=== PATIENT | female | born 1960 | race Caucasian/White ===

== ENCOUNTER 2017-09-14 08:20 | Emergency (ER) | payer OTHER ==
[~2017-09-14] VITALS: Ht 154.9 cm; Wt 90.7 kg
--- NOTE | 2017-09-14 08:25 | NUR ---
PATIENT TO 4 AT THIS TIME.
[2017-09-14 08:28] VITALS: BP 135/74
[2017-09-14] MEDS ORDERED: ATOR10TA51 PO (08:34)
[2017-09-14] MEDS ORDERED: FLUO-387 PO (08:34)
[2017-09-14] MEDS ORDERED: TRAZ-286 PO (08:34)
[2017-09-14] MEDS ORDERED: BUPR300T3 PO (08:34)
--- NOTE | 2017-09-14 08:38 | NUR ---
PT BIBA FOR EVALUATION OF GENERALIZED WEAKNESS SINCE THIS AM AFTER TAKING DEPRESSION MEDS. HX OF DEPRESSION, HYPERLIPIDEMIA.DENIES N/V/D; SKIN IS PINK/WARM/DRY; AAOX4; LUNGS CLEAR BL; HR EVEN AND REGULAR; PT DENIES ANY FEVER, CP, SOB, OR COUGH AT THIS TIME; PATIENT STATES PAIN OF 0/10 AT THIS TIME; PATIENT POSITIONED FOR COMFORT; HOB ELEVATED; BEDRAILS UP X2; BED DOWN.ALL MONITORS IN PLACED; ER MD MADE AWARE OF PT STATUS.
--- NOTE | 2017-09-14 09:29 | NUR ---
PT SLEEPING;NO ACUTE DISTRESS NOTED;WILL CONTINUE MONITOR PT.
--- NOTE | 2017-09-14 09:36 | NUR ---
DR DURBIN AT BEDSIDE.
[2017-09-14] MEDS ORDERED: LORazepam 1 MG TAB PO ONE (10:10)
--- NOTE | 2017-09-14 11:34 | NUR ---
PT SLEEPING;NO ACUTE DISTRESS NOTED AT THIS TIME;
--- NOTE | 2017-09-14 12:38 | NUR ---
PT WAITING FOR HER SISTER TO PICK HER UP;DR SPANN SAYS OKAY TO STAY FOR A WHILE;PT REFUSE BUS PASS;CHARGE NURSE AWARE OF THE SITUATION;
--- NOTE | 2017-09-14 13:50 | NUR ---
Patient discharged with v/s stable. Written and verbal after care instructions given and explained. Patient alert, oriented and verbalized understanding of instructions. Ambulatory with steady gait. All questions addressed prior to discharge. ID band removed. Patient advised to follow up with PMD. Rx of ATARAX AND PREDNISONE given. Patient educated on indication of medication including possible reaction and side effects. Opportunity to ask questions provided and answered.
[2017-09-14 13:51] VITALS: BP 127/82
== END 2017-09-14 13:50 | disposition home or self-care (01) ==
LOC: MED 08:20
DX: R53.1 Weakness (principal); J02.9 Acute pharyngitis, unspecified; F41.9 Anxiety disorder, unspecified; F32.9 Major depressive disorder, single episode, unspecified; E78.5 Hyperlipidemia, unspecified; Z79.899 Other long term (current) drug therapy; F17.210 Nicotine dependence, cigarettes, uncomplicated
CPT/HCPCS: 81002; 81025; 82948; 99283; C1758

== ENCOUNTER 2018-08-07 14:07 | Inpatient (IN) | payer OTHER ==
[~2018-08-07] VITALS: Ht 154.9 cm; Wt 68.0 kg
[~2018-08-07 14:07] MED LIST: ATOR10TA51 PO; BUPR300T3 PO; FLUO-387 PO; TRAZ-343 PO
[2018-08-07 14:13] VITALS: BP 139/77
--- NOTE | 2018-08-07 14:15 | NUR ---
58YO TO ER FOR MID STERNAL CP, AND NOT TAKING PSYCH MEDS FOR 3 DAYS. PT REPROTS PAIN X1WK INTERMITTENT GOING UP TO A 5/10 CURRENTLY 2/10 PAIN. VSS, PT DENIES ANY N/V/D, LS CLEAR THROUGHOUT, ABD SOFT, NON TENDER, CP NON RADIATING. WILL CONTINUE TO MONITOR
[2018-08-07] MEDS ORDERED: LORazepam 1 MG TAB PO ONE (14:50)
[2018-08-07] MEDS ORDERED: NACL 0.9% 1,000 ML IV ONE (14:50)
--- NOTE | 2018-08-07 15:00 | NUR ---
XRAY AT BEDSIDE
--- NOTE | 2018-08-07 15:30 | NUR ---
PT APPEARS TO BE SLEEPING IN NO APPEARENT DISTRESS
--- NOTE | 2018-08-07 15:48 | NUR ---
PT STATES SI THOUGHTS, [place] TO EVALUATE PT.
[2018-08-07 16:01] LABS: BASOPHILS % (AUTO) 0.4 % (0.0-2.0); EOSINOPHILS % (AUTO) 0.4 % (0.0-4.0); HEMATOCRIT 40.4 % (36-48); HEMOGLOBIN 13.6 g/dL (12.0-16.0); LYMPHOCYTES # (AUTO) 1.4 K/uL (2.5-16.5); LYMPHOCYTES % (AUTO) 14.2 % (20.5-51.1); MEAN CORPUSCULAR HEMOGLOBIN 30 pg (27-31); MEAN CORPUSCULAR HGB CONC 34 g/dL (33-37); MEAN CORPUSCULAR VOLUME 89.5 fL (80-94); MONOCYTES # (AUTO) 0.7 K/uL (0.8-1.0); MONOCYTES % (AUTO) 7.2 % (1.7-9.3); NEUTROPHILS # (AUTO) 7.5 K/uL (1.8-7.7); NEUTROPHILS % (AUTO) 77.8 % (42.2-75.2); PLATELET COUNT (AUTO) 453 K/uL (140-450); RED BLOOD CELL COUNT(AUTO) 4.51 MIL/uL (4.20-5.40); RED CELL DISTRIBUTION WIDTH 13.6 % (11.6-13.7); WHITE BLOOD COUNT (AUTO) 9.7 K/uL (4.8-10.8)
--- NOTE | 2018-08-07 16:09 | NUR ---
pt provided with crackers and juice, and additional blanket
--- NOTE | 2018-08-07 16:11 | NUR ---
food tray ordered,
[2018-08-07 16:15] LABS: ANION GAP 6.3 (8-16); CARBON DIOXIDE 28.2 mmol/L (21-32); CREATININE 0.8 mg/dL (0.6-1.3); POTASSIUM 3.5 mmol/L (3.5-5.1)
[2018-08-07 16:19] LABS: PROTHROMBIN TIME 9.8 secs (10.8-13.4)
[2018-08-07 16:23] LABS: ALBUMIN 3.3 g/dL (3.4-5.0); TOTAL BILIRUBIN 0.1 mg/dL (0.0-1.0)
[2018-08-07 16:25] LABS: ACETAMINOPHEN < 0.5 ug/ml (10-30)
--- NOTE | 2018-08-07 17:30 | NUR ---
FOOD TRAY PROVIDED TO PT, CONTINUOUS MONITORING IN PLACE
--- NOTE | 2018-08-07 17:42 | NUR ---
PT AMBULATED TO RESTROOM WITH STEADY GAIT
[2018-08-07 18:07] LABS: APPEARANCE,URINE HAZY (CLEAR); BILIRUBIN,URINE 1+ (NEGATIVE); BLOOD, URINE TRACE-I (NEGATIVE); COLOR,URINE YELLOW (YELLOW); LEUKOCYTE ESTERASE ,URINE NEGATIVE (NEGATIVE); NITRITE, URINE NEGATIVE (NEGATIVE); UGLUCOSE NEGATIVE (NEGATIVE)
[2018-08-07 18:12] LABS: BARBITURATE, URINE NEG. ng/ml (NEG <=200); BENZODIAZEPINE, URINE NEG. ng/mL (NEG <=200); CANNABINOID, URINE NEG. ng/mL (NEG <=50); COCAINE, URINE NEG. ng/mL (NEG <=300); OPIATE, URINE NEG. ng/mL (NEG <=2000); PHENCYCLIDINE SCREEN,URINE NEG. ng/mL (NEG <=25)
[2018-08-07 18:20] LABS: RBC,URINE 0-5 (RARE) /HPF (0-5); WBC,URINE 0-5 (RARE) /HPF (0-5)
[2018-08-07 18:21] LABS: CALCIUM OXALATE CRYSTALS,UR 0-5 /HPF (None Seen)
[2018-08-07] MEDS ORDERED: ONDANSETRON 4 MG/2 ML VIAL IVP PRN (18:25)
[2018-08-07] MEDS ORDERED: ACETAMINOPHEN 325 MG TAB PO PRN (18:25)
--- NOTE | 2018-08-07 18:46 | NUR ---
PT APPEARS TO BE SLEEPING IN NO APPEARENT DISTRESS
--- NOTE | 2018-08-07 19:00 | NUR ---
Patient will be admitted to care of DR LARA. Admited to TELE . Will go to room 109B. Belongings list completed. Report to [facility] .
[2018-08-07 19:02] LABS: FREE T4 (FREE THYROXINE) 0.94 ng/dL (0.76-1.46); MAGNESIUM 2.1 mg/dL (1.8-2.4); PHOSPHORUS 3.2 mg/dL (2.5-4.9); THYROID STIMULATING HORMONE 0.79 uIU/mL (0.34-3.74)
--- NOTE | 2018-08-07 19:15 | NUR ---
ADMITTED THIS 58 YEAR OLD FEMALE FROM ER WITH CC OF CHEST PAIN AND SUICIDAL IDEATION, AMBULATED TO BED WITH STEADY GAIT, ASSESSMENT DONE, VITAL SIGNS STABLE, PT AAOX4, CALM AND COOPERATIVE, DENIES HALLUCINATION, STATED "SUICIDAL IDEATION EARLIER BUT NOT ANYMORE", PT ON 5150 WITH SITTER, PLAN OF CARE DISCUSS, PT WITH NO DENTURES BUT STATED NO PROBLEM CHEWING FOOD, WILL PROVIDE WITH SANDWICH AND JUICE, ALL NEEDS ATTENDED.
[2018-08-07 19:30] VITALS: BP 102/60
--- NOTE | 2018-08-07 19:50 | NUR ---
COMPLAINING OF BACK PAIN AND HEADACHE, DENIES CHEST PAIN, MEDICATED WITH NORCO PO, IVF STARTED AT 80ML/H, SITTER AT BEDSIDE.
[2018-08-07] MEDS: HYDROcodone/APAP 7.5/325 MG 1 TAB PO PRN (19:55)
[2018-08-07] MEDS: NACL 0.9% 1,000 ML IV SCH (19:56)
[2018-08-07] MEDS ORDERED: NITROGLYCERIN 0.4 MG TAB SL PRN (20:45)
[2018-08-07] MEDS ORDERED: ATORVASTATIN 20 MG TAB PO SCH (21:00)
[2018-08-07] MEDS ORDERED: traZODone 50 MG TAB PO SCH (21:00)
[2018-08-07] MEDS ORDERED: METOPROLOL 25 MG TAB PO SCH (21:00)
[2018-08-07] MEDS: DOCUSATE SODIUM 100 MG GELCAP PO SCH (21:01)
--- NOTE | 2018-08-07 21:05 | NUR ---
DUE MEDS ADMINISTERED, REFUSED TRAZODONE STATED "IT'S TOO MUCH, MAKES ME NAUSEOUS", RISK AND BENEFITS EXPLAINED PT STATED "NOT TONIGHT, MAYBE TOMORROW WHEN I'M BETTER", ALL NEEDS ATTENDED.
[2018-08-07] MEDS ORDERED: INFLUENZA VIRUS VACCINE QUAD 0.5 ML SYR IMVAC PRN (21:15)
--- NOTE | 2018-08-07 23:30 | NUR ---
PT SLEEPING, EASILY AROUSABLE, VITAL SIGNS TAKEN, BP ON THE LOW SIDE-91/51 BUT STABLE, DENIES PAIN, IVF INFUSING WELL, CONTINUE TO MONITOR CLOSELY.
[2018-08-08] VITALS: BP 91/51
[2018-08-08 04:00] VITALS: BP 110/67
--- NOTE | 2018-08-08 04:00 | NUR ---
PT SLEEPING, EASILY AROUSABLE, VITAL SIGNS STABLE, SB ON TELE, DENIES ANY PAIN, NO SOB NOTED, IVF INFUSING WELL, MONITORED CLOSELY, SITTER IN PLACE.
--- NOTE | 2018-08-08 05:00 | NUR ---
HEART RATE DROP TO 45 BPM BUT GOES UP IN THE 50'S IMMEDIATELY, PT SLEEPING, DENIES PAIN OR SOB, DR FRAGA MADE AWARE, NO NEW ORDER AT THIS TIME.
--- NOTE | 2018-08-08 07:12 | NUR ---
PT SLEEPING, NO DISTRESS NOTED, BEDSIDE REPORT GIVEN TO RN KANA FOR CONTINUITY OF CARE.
[2018-08-08] MEDS: NACL 0.9% 1,000 ML IV SCH (07:30)
--- NOTE | 2018-08-08 07:30 | NUR ---
RECEIVED PT ON BED ASLEEP, AROUSABLE, ORIENTED X4. NO SOB NOTED. NO C/O PAIN AT THIS TIME. IV TO LT AC PATENT AND INTACT. CHEST DIMINISHED AIR ENTRY TO THE BASES, OTHERWISE CLEAR. ABDOMEN SOFT, BOWEL SOUNDS PRESENT. NO EDEMA NOTED. WITH SITTER FOR SUICIDAL IDEATION. BED ON LOW POSITION. INSTRUCTED TO CALL FOR ASSISTANCE, PT VERBALIZED UNDERSTANDING.
[2018-08-08 07:46] LABS: BASOPHILS % (AUTO) 0.4 % (0.0-2.0); EOSINOPHILS # (AUTO) 0.1 K/uL (0-0.4); EOSINOPHILS % (AUTO) 0.9 % (0.0-4.0); HEMATOCRIT 34.4 % (36-48); HEMOGLOBIN 11.8 g/dL (12.0-16.0); LYMPHOCYTES # (AUTO) 2.2 K/uL (2.5-16.5); LYMPHOCYTES % (AUTO) 27.3 % (20.5-51.1); MEAN CORPUSCULAR HEMOGLOBIN 31 pg (27-31); MEAN CORPUSCULAR HGB CONC 34 g/dL (33-37); MEAN CORPUSCULAR VOLUME 90.1 fL (80-94); MONOCYTES # (AUTO) 0.8 K/uL (0.8-1.0); NEUTROPHILS % (AUTO) 61.4 % (42.2-75.2); PLATELET COUNT (AUTO) 391 K/uL (140-450); RED BLOOD CELL COUNT(AUTO) 3.82 MIL/uL (4.20-5.40); RED CELL DISTRIBUTION WIDTH 13.7 % (11.6-13.7); WHITE BLOOD COUNT (AUTO) 8.2 K/uL (4.8-10.8)
[2018-08-08 07:47] LABS: MAGNESIUM 2.1 mg/dL (1.8-2.4); PHOSPHORUS 2.9 mg/dL (2.5-4.9)
[2018-08-08 08:00] VITALS: BP 107/66
[2018-08-08 08:00] LABS: ANION GAP 10.5 (8-16); CARBON DIOXIDE 27.9 mmol/L (21-32); CREATININE 0.7 mg/dL (0.6-1.3); POTASSIUM 3.4 mmol/L (3.5-5.1)
--- NOTE | 2018-08-08 08:12 | NUR ---
PATIENT HAS BEEN SCREENED AND CATEGORIZED LOW NUTRITION RISK. PATIENT WILL BE SEEN WITHIN 7 DAYS OF ADMISSION. 08/14/[address]
[2018-08-08] MEDS ORDERED: ASPIRIN 81 MG TAB.CHEW PO SCH (09:00)
[2018-08-08] MEDS ORDERED: ATORVASTATIN 20 MG TAB PO SCH (09:00)
[2018-08-08] MEDS ORDERED: FLUoxetine 20 MG CAP PO SCH (09:00)
[2018-08-08] MEDS ORDERED: buPROPion 150 MG TABER PO SCH (09:00)
[2018-08-08] MEDS ORDERED: LISINOPRIL 5 MG TAB PO SCH (09:00)
[2018-08-08] MEDS: DOCUSATE SODIUM 100 MG GELCAP PO SCH (09:39)
--- NOTE | 2018-08-08 10:20 | NUR ---
TELEMETRY BOX REMOVED ORDERED. PT IS IN MED SURG STATUS NOW.
[2018-08-08] MEDS ORDERED: POTASSIUM CHLORIDE 10 MEQ TABER PO SCH (10:32)
--- NOTE | 2018-08-08 11:13 | NUR ---
PT SHOWERED, ACTIVITY TOLERATED WELL. PT CALM AND NOT VOICING ANY SUICIDAL THOUGHTS AT THIS TIME.
--- NOTE | 2018-08-08 12:15 | NUR ---
CM NOTE RECEIVED CALL FROM LOR THAYER FROM ADMITTING WHO STAED THAT [facility] IS FULL RISK AND REVIEWS SHOULD ONLY BE SENT TO [facility]. RECEIVED CALL FROM [facility] CM COORDINATOR KACY PH# [phone] WHO STATED THAT THE ASSIGNED CM IS MADDIE Mendoza PH# [phone] AND TO SEND REVIEWS TO FAX# [phone]. INITIAL REVIEW FAXED TO [facility] [phone] NABEEL Mendoza PH# [phone].
[2018-08-08] MEDS: HYDROcodone/APAP 7.5/325 MG 1 TAB PO PRN (12:50)
--- NOTE | 2018-08-08 13:30 | NUR ---
PT SEEN BY DR. GARG, 5150 HOLD HAS BEEN LIFTED UP. PER MD PT DOES NOT MEET THE CRITERIA.
--- NOTE | 2018-08-08 15:00 | NUR ---
[facility] Notes: I met with patient at bedside I introduced myself to patient and I explained her my role as a Staff Attorney to asses her for possible resources needed at discharge. Patient was awake, alert, and able to verbalized needed services. Patient verbalized understanding during the screen and stated needing resources to Homeless Shelters, I discuss and provided her with resources and a list of Transitional shelters and emergency shelters. I explained to her that [facility] in [place] and that she can be provided with a bus pass). Patient declined that option and stated that she will be calling and using other places to go in the list provided because she did not want to go there today. I also explained her that she needs to follow up with MD appointment after discharge from [facility]. Patient agreed and accepted bus pass as her way of transportation to go to custodial of her choice. Patient stated not having any more questions at the time.
[2018-08-08] MEDS ORDERED: ATOR10TA51 PO (15:21)
[2018-08-08] MEDS ORDERED: BUPR300T3 PO (15:21)
[2018-08-08] MEDS ORDERED: FLUO10CA21 PO (15:23)
--- NOTE | 2018-08-08 16:00 | NUR ---
DISCHARGE INSTRUCTIONS AND PRESCRIPTIONS GIVEN TO PT WHICH VERBALIZED FULL UNDERSTANDING OF THE INSTRUCTIONS GIVEN AND THE NEED TO FOLLOW UP WITH WITH PCP WITHIN 7 DAYS. ARM BANDS AND IV REMOVED, CANNULA TIP INTACT.
--- NOTE | 2018-08-08 16:10 | NUR ---
ESCORTED PT TO THE FRONT LOBBY IN STABLE CONDITION BY SECURITY. ALL BELONGINGS SENT WITH PT. PT CALM. NO COMPLAINTS MADE. PT IS D/C WITH [facility]. BUS VOUCHER PROVIDED.
[2018-08-08] MEDS ORDERED: OLAN20TA20 PO (16:31)
[2018-08-08] MEDS ORDERED: HYDR-1096 PO (16:31)
== END 2018-08-08 14:35 | disposition home or self-care (01) | DRG 243 ==
LOC: MED 14:07 → MTU 18:41
PROVIDERS: ADMIT General Practice; ATTEND General Practice
DX: K21.9 Gastro-esophageal reflux disease without esophagitis (principal); G92 Toxic encephalopathy; E44.0 Moderate protein-calorie malnutrition; M94.0 Chondrocostal junction syndrome [Tietze]; R45.851 Suicidal ideations; F20.9 Schizophrenia, unspecified; G47.00 Insomnia, unspecified; Z68.28 Body mass index [BMI] 28.0-28.9, adult; E78.5 Hyperlipidemia, unspecified; D47.3 Essential (hemorrhagic) thrombocythemia; F15.129 Other stimulant abuse with intoxication, unspecified; E66.3 Overweight; Z59.0 Homelessness; F15.10 Other stimulant abuse, uncomplicated; F31.9 Bipolar disorder, unspecified; Z82.3 Family history of stroke; F17.210 Nicotine dependence, cigarettes, uncomplicated; T43.625A Adverse effect of amphetamines, initial encounter; Y92.89 Other specified places as the place of occurrence of the external cause
CPT/HCPCS: 36415; 71045; 80048; 80053; 80305; 81001; 82150; 83036; 83690; 83735; 83880; 84100; 84134; 84439; 84443; 84484; 85025; 85610; 85730; 87081; 87086; 90658; 93005; 96360; 96361; 99285; C1758; G0480; G0482; J7030; Q0092